=== PATIENT | male | born 1965 | race Caucasian/White ===

== ENCOUNTER 2017-03-15 13:33 | Emergency (ER) | payer BC ==
[2017-03-15 13:50] VITALS: TEMP 98.6; BMI 25.8
--- NOTE | 2017-03-15 14:35 | PDOC ---
History of Present Illness - General Chief Complaint: Chest Pain Stated Complaint: CHEST PAIN Time Seen by Provider: 03/15/17 14:35 History Source: Patient - History of Present Illness Initial Comments: 03/15/17 14:54 51 y.o. male with a PMH of chronic back pain, PUD presents to ED c/o acute onset of R sided anterior chest pain. Patient states the pain is sharp, constant, 10/10, radiates down his R arm and to his scalpula. Patient denies any associated shortness of breath, palpitations, lightheadedness, nausea/ vomiting. Patient denies any previous episodes or previous cardiac work-up. 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 Patient denies any abdominal pain, constipation/diarrhea, hematuria/dysuria, recent travel or sick contact. NKDA Surgical: Back surgery x2, ex-lap Social: denies cigarettes, denies alcohol, denies recreational drugs PMD: Dr. Paula Damon/Dr. Leonila Oleary Past History - Past Medical History Allergies/Adverse Reactions: Allergies Allergy/AdvReac Type Severity Reaction Status Date / Time No Known Allergies Allergy Verified 03/15/17 13:49 Home Medications: Ambulatory Orders Oxycodone HCl/Acetaminophen [Percocet 5-325 mg Tablet] 1 tab PO Q4H PRN #15 tablet MDD 6 tabs 03/15/17 COPD: No Other medical history: DENIES SX - Suicide/Smoking/Psychosocial Hx Smoking History: Current every day smoker Number of Cigarettes Smoked Daily: 10 Information on smoking cessation initiated: No Hx Alcohol Use: No Drug/Substance Use Hx: No Review of Systems - Review of Systems Constitutional: No: Chills, Fever HEENTM: No: Recent change in vision Respiratory: Yes: SOB with Exertion. No: Shortness of Breath, Stridor, Wheezing , Productive cough Cardiac (ROS): Yes: Chest Pain. No: Irregular Heart Rate, Lightheadedness, Palpitations, Syncope ABD/GI: Yes: Poor Appetite. No: Constipated, Diarrhea, Nausea, Vomiting : No: Burning, Dysuria *Physical Exam - Vital Signs Last Vital Signs Temp Pulse Resp BP Pulse Ox 98.6 F 105 H 16 170/95 97 03/15/17 13:42 03/15/17 13:42 03/15/17 13:42 03/15/17 13:42 03/15/17 13:42 - Physical Exam Comments: 03/15/17 17:29 GENERAL: Awake, alert, moving all 4 extremities HEAD: no lacerations, lesions, EYES: PERRLA, EOMI, sclera anicteric, conjunctiva clear ENT: oropharynx clear without exudates. Moist mucosa NECK: Normal ROM, supple, no lymphadenopathy, JVD, or masses LUNGS: Breath sounds equal, clear to auscultation bilaterally. No wheezes, and no crackles HEART: Regular rate and rhythm, normal S1 and S2, no murmurs, rubs or gallops ABDOMEN: Soft, protuberant nontender, normoactive bowel sounds. No guarding, no rebound. No masses EXTREMITIES: Normal range of motion, no edema. No clubbing or cyanosis. BACK: No midline spinal tenderness in cervical/thoracic/lumbar region, TTP in R scalpular region NEUROLOGICAL: Normal speech, cranial nerves intact, intact DTR SKIN: Warm, Dry, normal turgor, no rashes or lesions noted. 03/15/17 18:57 ED Treatment Course - LABORATORY CBC & Chemistry Diagram: 03/15/17 14:45 03/15/17 14:45 Medical Decision Making - Medical Decision Making 03/15/17 17:50 51 y.o. male who presents with acute onset of chest pain that radiates to his scapula, h/o recent workplace injury. Troponin, ECG to r/o ACS however likely suspect muskoskeletal injury. Tachycardic and Hypertensive (SBP 170's) @ presentation ECG shows HR 99, no deviations, normal intervals, no ST elevations/depressions - non-ischemic EKG. Troponin (-) x1. Patient's pain resolved with Percocet. Will obtain CTA to r/o Thoracic Aneursym. 03/15/17 18:54 Tachycardia resolved, Repeat SBP 100's -- likely resolved 2/2 to pain control. CTA negative for aneursym, shows some nerve impingment in thoracic spine ( likely not new as patient's pain is more cranial). Will discharge home with return precautions, orthopedic referral and instruction to f/u with PMD. *DC/Admit/Observation/Transfer Diagnosis at time of Disposition: Back pain - Discharge Dispostion Disposition: HOME Condition at time of disposition: Good Admit: No - Prescriptions Prescriptions: Oxycodone HCl/Acetaminophen [Percocet 5-325 mg Tablet] 1 tab PO Q4H PRN #15 tablet MDD 6 tabs PRN Reason: Pain - Referrals Referrals: Abhijeet Michel MD [Staff Physician] - - Patient Instructions Additional Instructions: A referral to orthopedic surgery has been included in your discharge instruction. Please make an appointment for further evaluation of your back pain. A three day prescription of pain medication has been called to your pharmacy. Please follow-up with your primary care doctor in the next 24-48 hours for further evaluation and pain medication. Return to the Emergency Department for any new/worsening/concerning symptoms. - Post Discharge Activity
[2017-03-15 14:58] LABS: BASO % 0.6 % (0-2.0); EOS % 1.6 % (0-4.5); HEMATOCRIT 42.2 % (35.4-49); HEMOGLOBIN 14.4 GM/dL (11.7-16.9); LYMPH % 17.4 % (8-40); MCH 28.9 pg (25.7-33.7); MCHC 34.1 g/dl (32.0-35.9); MEAN PLT VOLUME 8.2 fl (7.5-11.1); MONO % 12.9 % (3.8-10.2); NEUT % 67.5 % (42.8-82.8); PLATELET COUNT 249 K/MM3 (134-434); RBC 4.96 M/mm3 (4.00-5.60); RDW 13.5 % (11.9-15.9); WHITE BLOOD COUNT 9.1 K/mm3 (4.0-10.0)
[2017-03-15 15:22] LABS: ALBUMIN 3.5 g/dl (3.4-5.0); ANION GAP 8 (8-16); BILIRUBIN,TOTAL 0.8 mg/dL (0.2-1.0); BLOOD UREA NITROGEN 8 mg/dL (7-18); CALCIUM 8.3 mg/dL (8.5-10.1); CHLORIDE 106 mmol/L (98-107); CO2 24 mmol/L (21-32); CREATININE 0.6 mg/dL (0.7-1.3); GLUCOSE,RANDOM 106 mg/dL (74-106); LIPASE 89 U/L (73-393); POTASSIUM 3.7 mmol/L (3.5-5.1); SGOT/AST 16 U/L (15-37); SGPT/ALT 26 U/L (12-78); SODIUM 138 mmol/L (136-145); TOT PROT 6.4 g/dl (6.4-8.2)
[2017-03-15 15:24] LABS: ALK PHOS 93 U/L (45-117)
--- NOTE | 2017-03-15 15:35 | EKG ---
Test Reason : Blood Pressure : / mmHG Vent. Rate : 099 BPM Atrial Rate : 099 BPM P-R Int : 142 ms QRS Dur : 092 ms QT Int : 358 ms P-R-T Axes : 046 022 002 degrees QTc Int : 459 ms POOR DATA QUALITY, INTERPRETATION MAY BE ADVERSELY AFFECTED NORMAL SINUS RHYTHM NONSPECIFIC ST ABNORMALITY ABNORMAL ECG WHEN COMPARED WITH ECG OF 24-NOV-2010 01:26, NO SIGNIFICANT CHANGE WAS FOUND Confirmed by MICHAEL SAMUEL, AMBREEN ([id number]) on 03/15/2017 3:35:29 PM Referred By: Confirmed By:AMBREEN RODRIGUEZ MD
[2017-03-15] MEDS ORDERED: diazePAM CARPU-JECT 10 MG/2 ML DISP.SYRIN IVPUSH ONE (15:50)
[2017-03-15] MEDS ORDERED: diazePAM 5 MG TABLET ONE (16:09)
[2017-03-15] MEDS ORDERED: diazePAM 5 MG TABLET PO ONE (16:12)
--- NOTE | 2017-03-15 17:46 | PDOC ---
Attending Attestation - Resident Resident Name: Trinity Swani - ED Attending Attestation I have performed the following: I have examined & evaluated the patient, The case was reviewed & discussed with the resident, I agree w/resident's findings & plan, Exceptions are as noted - HPI HPI: 03/15/17 17:42 51 M with h/o chronic LBP s/p 2 surgeries, presents to ED with acute onset R sided chest pain radiating to his back. 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 As he pulled, he felt a sharp pain in his R upper back. He states that the pain radiates into his chest. Denies SOB. Denies falling. Denies midline back pain or lower back pain. Denies leg weakness/numbness/incontinence. Pt states that the pain is worse with deep inspiration, is not exertional. Denies leg swelling or h/o DVT/PE. - Physicial Exam PE: 03/15/17 17:45 "GENERAL: Awake, alert, and fully oriented, in no acute distress HEAD: No signs of trauma EYES: PERRLA, EOMI, sclera anicteric, conjunctiva clear ENT: Auricles normal inspection, hearing grossly normal, nares patent, oropharynx clear without exudates. Moist mucosa NECK: Nontender, no stepoffs, Normal ROM, supple, no lymphadenopathy, JVD, or masses LUNGS: Breath sounds equal, clear to auscultation bilaterally. No wheezes, and no crackles CHEST: no chest wall tenderness, no crepitus HEART: Regular rate and rhythm, normal S1 and S2, no murmurs, rubs or gallops ABDOMEN: Soft, nontender, normoactive bowel sounds. No guarding, no rebound. No masses EXTREMITIES: Normal range of motion, no edema. No clubbing or cyanosis. No cords, erythema, or tenderness BACK: R upper back tenderness, no scapular tenderness or deformity, no midline tenderness NEUROLOGICAL: Cranial nerves II through XII intact. 5/5 strength and sensation in all extremities, Normal speech, normal gait SKIN: Warm, Dry, normal turgor, no rashes or lesions noted. " - Medical Decision Making 03/15/17 17:46 51 M with R upper back pain radiating towards chest. Likely msk injury that occurred in context of pulling. Pt with clear lungs and no bony tenderness. ACS unlikely given nonischemic EKG and R sided pain that is not exertional. Consider dissection as pain radiates from chest to back. - labs, trop - CXR - CTA chest r/o dissection - Pain control Discharge Disposition - Diagnosis Back pain - Discharge Dispostion Disposition: HOME Condition at time of disposition: Good Last Admission D/C Date: 11/24/10 - Prescriptions Prescriptions: Diazepam [Valium] 5 mg PO Q6H PRN #8 tablet MDD 4 tabs PRN Reason: Pain Oxycodone HCl/Acetaminophen [Percocet 5-325 mg Tablet] 1 tab PO Q4H PRN #15 tablet MDD 6 tabs PRN Reason: Pain - Referrals Referrals: Abhijeet Michel MD [Staff Physician] - - Patient Instructions Additional Instructions: A referral to orthopedic surgery has been included in your discharge instruction. Please make an appointment for further evaluation of your back pain. A three day prescription of pain medication has been called to your pharmacy. Please follow-up with your primary care doctor in the next 24-48 hours for further evaluation and pain medication. Return to the Emergency Department for worsening pain, weakness, numbness, chest pain, shortness of breath, or any new/worsening/concerning symptoms. - Post Discharge Activity Work/School Note: Back to Work
[2017-03-15 19:12] VITALS: BP 97/52; PULSE 81
== END 2017-03-15 19:18 | disposition home or self-care (01) ==
LOC: JER 13:33
DX: S39.82XA Other specified injuries of lower back, initial encounter (principal); X50.0XXA Overexertion from strenuous movement or load, initial encounter; Y93.H9 Activity, other involving exterior property and land maintenance, building and construction; Y92.69 Other specified industrial and construction area as the place of occurrence of the external cause; Y99.0 Civilian activity done for income or pay; F17.210 Nicotine dependence, cigarettes, uncomplicated
CPT/HCPCS: 36415; 71046-TC-FY; 71275-TC; 74170-TC; 80053; 82550; 82553; 83690; 84484; 85025; 93005; 93010; 99284-25

== ENCOUNTER 2018-09-19 23:05 | Emergency (ER) | payer BC | END 2018-09-20 03:18 | disposition short-term general hospital (02) | LOC: JER 09-20 03:18 ==